=== PATIENT | female | born 1945 | race Caucasian/White ===

== ENCOUNTER → 2016-10-21 | Outpatient (CLI) | payer MEDICARE, OTHER ==
[~2016-10-21] MED LIST: AMLODIPINE BESYL5 MG PO; ASPIRIN81 M2 PO; BUPROPION XL300 MG PO; CENTRUM SILVER1 EAC2 PO; COUMADIN6 MG PO; CRESTOR5 MG PO; HARD NAILS2500 MCG PO; KLONOPIN0.5 M3; LORTAB 7.5-3251 EACH PO; METOPROLOL TAR100 MG PO; NEXIUM20 MG PO; PAXIL10 MG PO; PERCOCET10 PO; PRINIVIL20 M1 PO; VITAMIN D2000 UNIT PO; VOLTAREN75 MG PO
--- NOTE | ~2016-10-21 | CR63 ---
[facility] A Service of [facility] & [facility] / [facility] RADIOLOGY TEXT RESULTS PATIENT: SHANIQUE RUTHERFORD LOCATION: [facility] : [birth year] UNIT #: [id number] AGE: [address]: Domenico Daigle MD SEX: F ORDER DR: [id number] [facility] [address] [place], [place] [address] [id number] O MR#: [id number] Acc #: [id number] NAME: SHANIQUE RUTHERFORD : 1945 SEX: F STUDY DATE/TIME: 10/21/2016 12:37 UNIT: [facility] ROOM: STUDY DESCRIPTION: CR Chest 2 View Attending Physician: Domenico Daigle M.D. Referring Physician: Domenico Daigle M.D. Ordering Physician: Domenico Daigle M.D. Primary Care Physician: Jae Manzanares M.D. MEDICAL IMAGING REPORT This report is preliminary unless electronic signature is present EXAM PA and lateral chest radiograph HISTORY History supplied is preop knee surgery. FINDINGS PA and lateral views were obtained. Heart size is normal. There are postop changes of apparent left mastectomy. There is a monitoring electrode over the muscle and monitoring device over the left chest. The patient has severe scoliosis. Lungs are clear. CONCLUSION Severe scoliosis. Postop changes of apparent left breast surgery. No acute process identified. Dictated by... Doug Hanson M.D. THIS IS AN ELECTRONICALLY VERIFIED REPORT Doug Hanson M.D. at 10/24/2016 2:20 PM Nataly TD: 10/21/2016 19:17 JOB #: [id number] MEDICAL IMAGING REPORT Page 1 of 1 COPY
--- NOTE | ~2016-10-21 | CO ---
Unit #: [id number] #: [id number] Patient: SHANIQUE RUTHERFORD [id number] [address] [place], [place] [address] [id number] O MR#: [id number] NAME: SHANIQUE RUTHERFORD ROOM: Age: 71 Sex: F Admission Date: 10/21/2016 : 1945 Attending Physician: Domenico Daigle M.D. Primary Care Physician: Jae Manzanares M.D. Requesting Physician: Domenico Daigle M.D. Consultation Date: 10/21/2016 CONSULTATION REPORT REASON FOR CONSULTATION Preoperative medical evaluation prior to left total knee arthroplasty. HISTORY OF PRESENT ILLNESS The patient is a 71-year-old female who presents to preprocedure screening for reasons indicated above. She reports left knee pain. She has been evaluated by Dr. Daigle and scheduled for the above referenced procedure. She denies chest, upper back, arm, neck, jar pain or pressure other than pain with movement of the mandible and bilateral TMJ areas. She reports chronic back pain and chronic neck pain in the spinal region. She denies lightheadedness, dizziness, presyncope, syncope or palpitations. She has a history of obstructive sleep apnea and is compliant with BiPAP when asleep. She has been evaluated by her managing attorney and tells me that she has been given a letter of preoperative pulmonary clearance. She denies history of myocardial infarction, congestive heart failure, diabetes and/or kidney disease. She had a stroke approximately one year ago, during which time she lost strength and was unable to use her right upper extremity and right lower extremity. She reports all symptoms resolved and she has no residual. She was admitted to the neuro ICU at [facility] and per her report believed to have suffered a stroke secondary to atrial fibrillation. Please note the patient denies a history of atrial fibrillation, although she had implantation of what I understand from the RN to be a Link Reveal cardiac implant. The patient is established with Dr. Llamas as her deputy director of public works and follows up with him regularly. The quality assurance monitor chassis is evaluated remotely every three months and at last report there were no concerns regarding the function of the quality assurance monitor chassis. She has not been evaluated for preoperative cardiac clearance at this time. PAST MEDICAL HISTORY 1. Osteoarthritis. 2. History of CVA approximately one year ago without residual at this time, on low-dose aspirin therapy. 3. Hypertension. 4. Bilateral breast cancer, status post bilateral reconstruction surgery. 5. Obstructive sleep apnea, compliant with BiPAP. 6. Depression/anxiety. 7. Hyperlipidemia. 8. Gastroesophageal reflux disease. 9. History of atrial fibrillation, although the patient denies this is an issue. 10. History of anemia. Unit #: [id number] #: [id number] Patient: SHANIQUE RUTHERFORD 11. Restless leg syndrome. 12. Left foot neuropathy. 13. Chronic low back pain, established with primary care physician to prescribe medications on a monthly basis. 14. Possible TMJ syndrome. 15. Chronic neck pain. PAST SURGICAL HISTORY 1. Hysterectomy. 2. Right mastectomy. 3. Right breast reconstructive surgery times three. 4. Left mastectomy with reconstruction surgery at the same time. 5. Bilateral reattached retinas. 6. Left eye surgery times four. 7. Bilateral carpal tunnel release. 8. ekg monitor tech implant for atrial fibrillation. 9. Right total knee arthroplasty. Please note this patient denies a personal or family history of complications to anesthesia. SOCIAL HISTORY Denies tobacco use and illicit drug use. Occasionally consumes wine or beer. FAMILY HISTORY Per review of Dr. Daigle's office note and discussion with the patient, mother colon cancer, father emphysema, brother chronic obstructive pulmonary disease. ALLERGIES Denies latex allergy. No medication allergies known. CURRENT MEDICATIONS 1. Diclofenac sodium EC 75 mg p.o. b.i.d. 2. Aspirin 81 mg p.o. at bedtime. 3. Lortab 7.5/325 mg 1 p.o. t.i.d. p.r.n. pain. 4. Centrum Silver tablet 1 p.o. daily. 5. Vitamin D 2000 units p.o. b.i.d. 6. Biotin 2500 mcg p.o. daily. 7. Nexium 20 mg p.o. daily p.r.n. acid reflux. 8. Crestor 2.5 mg p.o. at bedtime on Friday, Friday and Friday. 9. Klonopin 0.5 mg p.o. at bedtime. REVIEW OF SYSTEMS Ten-month history of pain in both temporomandibular joints with clicking with opening and movement of mandible. Ten point review of systems is conducted and otherwise negative except as indicated under history of present illness and past medical history above. PHYSICAL EXAMINATION GENERAL: The patient is a 71-year-old female awake, alert and in no acute distress. VITALS: Temperature 96.9, heart rate 60, respiratory rate 18, blood pressure 169/87, oxygen saturation 96% on room air. Please note, the patient states she forgot to take her blood pressure medicine this a.m. HEENT: Atraumatic, normocephalic. Sclerae anicteric. No discharge from Unit #: [id number] #: [id number] Patient: BADGETT,SHANIQUE eyes, ears or nares. LYMPH: No preauricular, post auricular, tonsillar, submental, anterior, posterior, cervical adenopathy. No supra or infraclavicular adenopathy. ENDOCRINE: No thyromegaly, thyroid nodules or tenderness. LUNGS: Clear to auscultation all matute bilaterally without wheezes, rhonchi or rales. HEART: S1 and S2. Regular rate and rhythm without murmur or rub. No carotid bruits. ABDOMEN: Bowel sounds positive times four, soft, nontender and nondistended. EXTREMITIES: No edema, cyanosis or clubbing. MUSCULOSKELETAL: Strength 5/5 all extremities bilaterally to flexion and extension. NEUROLOGIC: Cranial nerves II through XII grossly intact. Speech clear. Alert and oriented times three. Ambulatory. DIAGNOSTIC STUDIES IMAGING: Two view chest x-ray report pending at this time. LABORATORY: White blood cell count 8.4, hemoglobin 13.1, hematocrit 39.9, platelets 319,000, sodium 138, potassium 4.8, chloride 102, CO2 29, glucose 91, BUN 18, creatinine 0.9, calcium 9.2, AST 24, ALT 22, alkaline phosphatase 46, bilirubin total 0.5, total protein 6.5, albumin 4.0. Blood type O positive, antibody screen negative. PT 10.2, INR 1.0. Urinalysis leukocyte esterase 1+, nitrate negative, blood 1+, RBC 5-10, WBC 5-10, bacteria negative, squamous cells none. Urine culture and sensitivity pending at this time. MRSA nasal swab report pending at this time. CARDIOVASCULAR: Preliminary tracing sinus bradycardia, otherwise normal ECG. Confirmed report pending at this time, tracing reviewed by me. ASSESSMENT 1. The patient is a 71-year-old female who presents to preprocedural screening for preoperative medical evaluation prior to elective left total knee arthroplasty as scheduled by Dr. Daigle. The patient's Leon revised cardiac risk index is equal to 1.0%, given history of CVA. This represents the patient's preoperative risk of cardiac , fatal or nonfatal myocardial infarction, cardiopulmonary arrest, arrhythmia and/or pulmonary edema. This has been discussed in detail with the patient and she wishes to proceed with surgery as scheduled at this time. Please note that I have requested an evaluation by the patient's deputy director of public works, Dr. Llamas, to provide cardiac clearance, given the patient's history of CVA, to confirm appropriate medical and risk factor management as well as to address history of atrial fibrillation and operation of internal quality assurance monitor chassis. This has been discussed in detail with the patient. She is in agreement with the plan. She will call Dr. Llamas and schedule the appointment herself. Pertinent records have been faxed to Dr. Llamas's office for his review. 2. History of CVA. The patient tells me that this was approximately one year ago. She was treated in the neuro-ICU at [facility] for approximately four days. I have requested records from [facility], including discharge summary, MRI/MRA of the brain and neck reports as well as CTA of the head and neck reports and that they be faxed to my office for my review preoperatively. 3. History of hypertension with elevated blood pressure today. The Unit #: [id number] #: [id number] Patient: SHANIQUE RUTHERFORD patient forgot to take her blood pressure medicine. Will monitor blood pressure perioperatively and adjust medications and IV fluids accordingly if indicated. 4. History of breast cancer, status post bilateral mastectomies and reconstructions. The patient is stable at this time. 5. Obstructive sleep apnea. The patient has been advised to bring BiPAP and will be placed on JEFFRY protocol postoperatively. 6. Depression/anxiety, stable. 7. Continue home medications. 8. Hyperlipidemia. Continue current dose of Crestor based on further recommendations of deputy director of public works for preoperative clearance. 9. Gastroesophageal reflux disease. Continue PPI. 10. History of anemia. The patient's hemoglobin and hematocrit are stable today. Will monitor her hemoglobin and hematocrit postoperatively. 11. Restless leg syndrome. 12. Left foot neuropathy. 13. Chronic low back pain. Controlled. 14. Possible TMJ syndrome. 15. Chronic neck pain. Thank you for allowing us to participate in the care of this patient. Will gladly follow with postoperative management pending preoperative cardiology clearance and order of Dr. Daigle. Dictated by... Krystle Mccoy A.P.R.N. for Francisco Pearson/sachi TD: 10/22/2016 09:40 JOB #: [id number] CONSULTATION REPORT Page 1 of 1 X Krystle Mccoy CRIME SPECIALIST X CONSULTATION REPORT
--- NOTE | ~2016-10-21 | EKG ---
PATIENT: SHANIQUE RUTHERFORD UNIT #: [id number] Ventricular Rate: 59 BPM Atrial Rate: 59 BPM P-R Interval: 134 ms QRS Duration: 78 ms Q-T Interval: 424 ms QTC Calculation(Bezet): 419 ms P [place]: 37 degrees Calculated R [place]: 57 degrees Calculated T [place]: 72 degrees Diagnosis Line: Sinus bradycardia Diagnosis Line: Otherwise normal ECG Diagnosis Line: No previous ECGs available Diagnosis Line: Confirmed by DANIEL TRAMMELL MD ([id number]) on 10/21/2016 Diagnosis Line: 11:02:24 PM INTERPRETING MD: JP TARIQ
[2016-10-21 10:04] LABS: HEMATOCRIT 39.9 % (35.0-45.0); HEMOGLOBIN 13.1 gm/dL (12.0-16.0); MEAN CELL VOLUME 92.5 FL (83-96); MEAN CORPUSCULAR HEMOGLOBIN 30.3 PG (28-34); MEAN CORPUSCULAR HGB CONC 32.8 g/dL (30-36); MEAN PLATELET VOLUME 7.3 FL (6.5-11.5); RED BLOOD COUNT 4.32 X10e (3.90-5.30); RED CELL DISTRIBUTION WIDTH 12.5 % (11.0-15.5); WHITE BLOOD COUNT 8.4 X10e3 (4.0-10.5)
[2016-10-21 10:10] LABS: URINE APPEARANCE CLEAR; URINE BILIRUBIN NEG (NEG); URINE BLOOD 1+ (NEG); URINE COLOR YELLOW; URINE GLUCOSE NEG (NEG); URINE KETONE NEG (NEG); URINE LEUKOCYTE ESTERASE 1+ (NEG); URINE NITRATE NEG (NEG); URINE PH 6.5 (5-8); URINE PROTEIN NEG (NEG); URINE SPECIFIC GRAVITY 1.015 (1.003-1.035); URINE UROBILINOGEN 0.2 MG/DL (NEG)
[2016-10-21 10:13] LABS: CULTURE INDICATED? YES; URINE BACTERIA AUWI NEG (NEGATIVE); URINE SQUAMOUS EPITHELIAL CELL NONE SEEN /[HPF]
[2016-10-21 10:14] LABS: URINE SOURCE CLEAN CATCH
[2016-10-21 10:16] LABS: PROTHROMBIN TIME (PATIENT) 10.2 SECONDS (9.6-11.5)
[2016-10-21 11:08] LABS: BILIRUBIN,TOTAL 0.5 mg/dL (0.2-2.0); CALCIUM SERUM 9.2 mg/dL (8.4-10.2); CREATININE SERUM 0.9 mg/dL (0.6-1.4); GLOM FILT RATE Estimated 65.3 mL/min (>60); POTASSIUM 4.8 mmol/L (3.5-5.1); PROTEIN TOTAL SERUM 6.5 g/dL (6.0-8.3)
== END | disposition home or self-care (01) ==
LOC: CAMB 09:25
PROVIDERS: Orthopaedic Surgery
DX: Z01.818 Encounter for other preprocedural examination (principal); M17.12 Unilateral primary osteoarthritis, left knee; I10 Essential (primary) hypertension; G47.33 Obstructive sleep apnea (adult) (pediatric); F41.8 Other specified anxiety disorders; E78.5 Hyperlipidemia, unspecified; M41.9 Scoliosis, unspecified; K21.9 Gastro-esophageal reflux disease without esophagitis; G25.81 Restless legs syndrome; G62.9 Polyneuropathy, unspecified; M54.5 Low back pain; G89.29 Other chronic pain; Z85.3 Personal history of malignant neoplasm of breast; Z90.13 Acquired absence of bilateral breasts and nipples; Z86.73 Personal history of transient ischemic attack (TIA), and cerebral infarction without residual deficits
CPT/HCPCS: 36415; 71020; 80053; 81003; 85027; 85610; 86850; 86900; 86901; 87070; 87086; 93005

== ENCOUNTER 2016-11-04 05:36 | Inpatient (IN) | payer MEDICARE, OTHER ==
--- NOTE | ~2016-11-04 | OR ---
Unit #: [id number] #: [id number] Patient: SHANIQUE RUTHERFORD [id number] [place], [place] [address] [id number] I MR#: [id number] NAME: SHANIQUE RUTHERFORD ROOM: [facility] Date of Procedure: 11/04/2016 Admission Date: 11/04/2016 Surgeon: Domenico Daigle M.D. : 1945 Attending Physician: Domenico Daigle M.D. Referring Physician: Domenico Daigle M.D. Primary Care Physician: Jae Manzanares M.D. OPERATIVE REPORT PREOPERATIVE DIAGNOSIS Primary localized osteoarthritis of the left knee. POSTOPERATIVE DIAGNOSIS Primary localized osteoarthritis of the left knee. PROCEDURE PERFORMED Left total knee. ASSISTANTS Dina Gu and Obdulio Landry. ANESTHESIA Adductor canal block plus general. ESTIMATED BLOOD LOSS 100 mL. INDICATIONS FOR PROCEDURE This is a 71-year-old with severe pain in her left knee. She has had pain for years. It has gotten progressively worse. She has tried injections and anti-inflammatories with no relief of her discomfort. Her x-rays show she has [id number] with subchondral sclerosis and periarticular osteophytes. She is brought to the operating room today for left total knee. DESCRIPTION OF PROCEDURE The patient was brought to the holding room, given 1 g of Ancef. This will be continued postop, but discontinued within 23 hours the start time of surgery. She was given adductor canal block, brought back to the operating room, given a general anesthetic. Tourniquet was placed around the left thigh. The left leg was prepped and draped in a sterile fashion. After this was done, the tourniquet was inflated to 250. A straight anterior skin incision was made. The subcutaneous dissected away and a medial arthrotomy was performed. Patella was slid to the side. Osteophytes were removed from the femur. The intramedullary guide was used and a 6-degree valgus cut was made on the distal femur. The femur was sized and found to be a size 6 for the Attune system. The size 6 cutting block was applied. Rotation was checked in the knee. Anterior and posterior cuts were made along with the chamfer cuts and then the trochlear groove cut was made for the femur. Proximal tibial cut was made using a 0-degree cutting block. Once the tibial cut was made and the Unit #: [id number] #: [id number] Patient: SHANIQUE RUTHERFORD fragment removed, it was sized at a 5. The remaining meniscal fragments were debrided and osteophytes were removed from the posterior femoral condyles. The posterior capsule and the periosteum were injected with ropivacaine mixture. Trial tibia and trial femur were applied with a 5 mm insert in the tibia. The knee came to full extension and good stability in extension and flexion. Rotation of the tibia was marked and then the patella was grasped with 2 towel clips. The patella measured 23 mm thick, was cut smooth at 14 and a 38 patella was the appropriate size. The 3 drill holes were made. Trial patella applied and it tracked properly. We then removed all the trials, used the drill and punch for the tibial tray. The knee was irrigated and dried while the cement was mixed and then all 3 components were cemented simultaneously. Once again, it was a size 6 femur cruciate retaining, size 5 tibial base plate, and a 38 patella from the Spot Influence Knee system. Any excess cement was removed and after the cement was hardened, it was judged that the 5 insert was the appropriate thickness, so this was opened and applied to the tibial tray. The tourniquet was released. Hemostasis was obtained and the wound was irrigated with Betadine and bacitracin, and then closed using 0 Ethibond in the arthrotomy, 0 and 2-0 Vicryl in the subcutaneous, and the Prineo Dermabond closure was used in the skin. Sterile dressing was applied and her general anesthetic reversed. registered sales assistant, Dina Gu was present throughout the entire case. Dictated by... Francisco Quintana/keanu TD: 11/04/2016 22:44 JOB #: [id number] OPERATIVE REPORT Page 1 of 1 X Domenico Daigle MD PROCEDURE OPERATIVE NOTE
--- NOTE | ~2016-11-04 | DS ---
Unit #: [id number] #: [id number] Patient: SHANIQUE RUTHERFORD [id number] [address] [address] [id number] I MR#: [id number] NAME: SHANIQUE RUTHERFORD ROOM: 449 Age: 71 Sex: F Admission Date: 11/04/2016 : 1945 Discharge Date: 11/05/2016 Attending Physician: Domenico Daigle M.D. Referring Physician: Domenico Daigle M.D. Primary Care Physician: Jae Manzanares M.D. DISCHARGE SUMMARY ADMITTING PHYSICIAN Domenico Daigle M.D. ADMITTING DIAGNOSIS Left knee osteoarthritis. DISCHARGE DIAGNOSIS Left knee osteoarthritis. HOSPITAL COURSE On 11/04/2016 Ms. Rutherford underwent a left total knee arthroplasty. She tolerated the procedure well. She was transported to the fourth floor where she underwent physical therapy, medical management and anticoagulation therapy. She is doing well and is ready to be discharged. DISPOSITION Stable, discharge home [facility] to follow. DISCHARGE MEDICATIONS Medications on discharge include her routine home meds and addition of Percocet 10/325 and Coumadin 6 mg. FOLLOWUP AND INSTRUCTIONS 1. Ms. Rutherford is going to be discharged home with home health to follow. 2. Patient is on Coumadin for DVT prophylaxis. PT and INR to be drawn every Friday and in addition to tomorrow 11/06/2016. 3. Skin marlene are to be discontinued two weeks postop. 4. Bilateral knee-high ABUNDIO hose worn during the day and can be removed in the evening. 5. Patient can shower in one week. 6. Can drive after seen by Dr. Daigle at the six-week postop appointment. 7. Physical therapy is to be done for active range of motion, strengthening and progressive ambulation. 8. Patient will be on a walker for four weeks and a cane for an additional two weeks. 9. Followup appointment with Dr. Daigle is in six weeks. Unit #: [id number] #: [id number] Patient: SHANIQUE RUTHERFORD Dictated by... Dina Gu, P.A.C. for Francisco Quintana/daya TD: 11/05/2016 20:03 JOB #: [id number] DISCHARGE SUMMARY Page 1 of 1 X Dina Gu DISCHARGE SUMMARY
[2016-11-04 06:30] LABS: PROTHROMBIN TIME (PATIENT) 10.4 SECONDS (9.6-11.5)
[2016-11-04 06:50] LABS: URINE SOURCE CLEAN CATCH
[2016-11-04 06:58] LABS: URINE APPEARANCE SL HAZY; URINE BILIRUBIN NEG (NEG); URINE BLOOD 2+ (NEG); URINE COLOR YELLOW; URINE GLUCOSE NORM (NORM); URINE KETONE NEG (NEG); URINE LEUKOCYTE ESTERASE 2+ (NEG); URINE NITRATE NEG (NEG); URINE PROTEIN NEG (NEG); URINE SPECIFIC GRAVITY 1.015 (1.003-1.035); URINE UROBILINOGEN NORM (NORM)
[2016-11-04 07:05] LABS: CULTURE INDICATED? YES; URINE BACTERIA AUWI NEG (NEGATIVE); URINE SQUAMOUS EPITHELIAL CELL OCC /[HPF]
[2016-11-04] MEDS ORDERED: AMLODIPINE BESYL5 MG PO (10:11)
[2016-11-04] MEDS ORDERED: PAXIL10 MG PO (10:11)
[2016-11-04] MEDS ORDERED: METOPROLOL TAR100 MG PO (10:11)
[2016-11-04] MEDS ORDERED: BUPROPION XL300 MG PO (10:12)
[2016-11-04] MEDS ORDERED: PRINIVIL20 M1 PO (10:12)
[2016-11-04] MEDS ORDERED: VOLTAREN75 MG PO (10:12)
[2016-11-04] MEDS ORDERED: ASPIRIN81 M2 PO (10:13)
[2016-11-04] MEDS ORDERED: VITAMIN D2000 UNIT PO (10:14)
[2016-11-04] MEDS ORDERED: LORTAB 7.5-3251 EACH PO (10:14)
[2016-11-04] MEDS ORDERED: CENTRUM SILVER1 EAC2 PO (10:14)
[2016-11-04] MEDS ORDERED: HARD NAILS2500 MCG PO (10:15)
[2016-11-04] MEDS ORDERED: NEXIUM20 MG PO (10:15)
[2016-11-04] MEDS ORDERED: CRESTOR5 MG PO (10:38)
[2016-11-04] MEDS ORDERED: KLONOPIN0.5 M3 (11:14)
[2016-11-05 02:40] LABS: HEMATOCRIT 30.9 % (35.0-45.0); HEMOGLOBIN 10.3 gm/dL (12.0-16.0)
[2016-11-05 02:54] LABS: INR 1.5
[2016-11-05 02:55] LABS: PROTHROMBIN TIME (PATIENT) 16.1 SECONDS (9.6-11.5)
[2016-11-05 03:17] LABS: BUN/CREATININE RATIO 17.77; CALCIUM SERUM 8.6 mg/dL (8.4-10.2); CREATININE SERUM 0.9 mg/dL (0.6-1.4); GLOM FILT RATE Estimated 65.3 mL/min (>60); MAGNESIUM 1.7 mg/dL (1.6-3.0); POTASSIUM 4.5 mmol/L (3.5-5.1)
[2016-11-05] MEDS ORDERED: COUMADIN6 MG PO (09:42)
[2016-11-05] MEDS ORDERED: PERCOCET10 PO (09:43)
== END 2016-11-05 15:45 | disposition home health service (06) | DRG 470 ==
LOC: CSUR 05:36 → CPACUOF 06:45 → C4B 09:35
PROVIDERS: Nurse Practitioner; Orthopaedic Surgery
PROC: 0SRD0J9 Replacement of Left Knee Joint with Synthetic Substitute, Cemented, Open Approach (ICD-10-PCS; principal; 2016-11-04 07:00)
DX: M17.12 Unilateral primary osteoarthritis, left knee (principal); Z99.81 Dependence on supplemental oxygen; I10 Essential (primary) hypertension; Z85.3 Personal history of malignant neoplasm of breast; Z92.21 Personal history of antineoplastic chemotherapy; Z86.73 Personal history of transient ischemic attack (TIA), and cerebral infarction without residual deficits; Z96.651 Presence of right artificial knee joint; Z87.891 Personal history of nicotine dependence; G47.33 Obstructive sleep apnea (adult) (pediatric); F41.9 Anxiety disorder, unspecified; K21.9 Gastro-esophageal reflux disease without esophagitis; G62.9 Polyneuropathy, unspecified; G89.29 Other chronic pain; M54.2 Cervicalgia
CPT/HCPCS: 80048; 81003; 83735; 85014; 85018; 85610; 87086; 94760; 97110; 97116; 97161; 97166; 97530; 97535; C1776; G8978-GP; G8979-GP; G8980-GP; G8987-GO; G8988-GO; G8989-GO; J0131; J0171; J0690; J0735; J1100; J1170; J1650; J1885; J2175; J2250; J2405; J2795; J3010